=== PATIENT | male | born 2000 | race Caucasian/White ===

== ENCOUNTER 2020-12-28 16:55 | Emergency (ER) | payer BC, OTHER ==
[2020-12-28 17:17] VITALS: BP 112/69; PULSE 85; TEMP 98.6; BMI 25.8
== END 2020-12-28 20:34 | disposition home or self-care (01) ==
LOC: JERFT 16:55
DX: S83.8X1A Sprain of other specified parts of right knee, initial encounter (principal)
CPT/HCPCS: 73562-TC-RT-FY; 99284-25

== ENCOUNTER 2021-12-26 17:04 | Emergency (ER) | payer OTHER ==
[2021-12-26 17:09] VITALS: BP 118/77; PULSE 71; RESP 18; TEMP 98.3; BMI 24.4
== END 2021-12-26 19:48 | disposition left against medical advice (07) ==
LOC: JERFT 17:04
DX: K08.89 Other specified disorders of teeth and supporting structures (principal)
CPT/HCPCS: 99281-25

== ENCOUNTER 2022-08-22 12:00 | Emergency (ER) | payer BC, OTHER ==
[2022-08-22 12:08] VITALS: BP 118/71; PULSE 78; RESP 18; TEMP 98.3; BMI 24.3
[2022-08-22] MEDS ORDERED: KETOROLAC TROMETHAMINE 30 MG/1 ML VIAL IM ONE (12:18)
[2022-08-22] MEDS ORDERED: KETOROLAC TROMETHAMINE 30 MG/1 ML VIAL ONE (12:22)
== END 2022-08-22 14:53 | disposition home or self-care (01) ==
LOC: JERFT 12:00
PROC: 3E0233Z Introduction of Anti-inflammatory into Muscle, Percutaneous Approach (ICD-10-PCS; principal; 2022-08-22)
DX: M25.571 Pain in right ankle and joints of right foot (principal); R22.41 Localized swelling, mass and lump, right lower limb; W51.XXXA Accidental striking against or bumped into by another person, initial encounter; Y93.66 Activity, soccer
CPT/HCPCS: 73630-TC-RT-FY; 99284-25